=== PATIENT | male | born 1940 | race Caucasian/White ===

== ENCOUNTER 2020-02-05 08:35 | Outpatient (CLI) | payer OTHER, SELFPAY ==
--- NOTE | 2020-02-05 08:58 | ECHO_ITS ---
Patient Info Name: Sin Nieto Age: 79 years : 1940 Gender: Male Ht: 68 in Wt: 208 lbs BSA: 2.16 m2 BP: 157 / 78 mmHg Heart Rhythm: Sinus Rhythm Exam Date: 02/05/2020 9:29 AM Exam Location: [facility] Patient Status: Outpatient Admit Date: 02/05/2020 Staff Ordering Physician: Shay Flynn MD Educational/Development Assistant: Martha Jara RDCS Attending Provider: Shay Flynn MD Referring Physician: Rina SALOMON; Exam Type: CA echo doppler color flow Study Info Indications R01.1 - Cardiac murmur, unspecified Complete two-dimensional, color flow and Doppler transthoracic echocardiogram is performed. Summary 1. Complete two-dimensional, color flow and Doppler transthoracic echocardiogram is performed. 2. Left ventricular chamber dimension is normal. 3. Left ventricular systolic function is normal, estimated at 60-65%. 4. The left ventricular diastolic function is grade I diastolic dysfunction. 5. E/e' 15 is elevated. 6. 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 7. There is moderate to severe aortic valve stenosis with a peak velocity of 360 cm/s, mean gradient of 25 mmHg, and aortic valve area of 0.9 cm2. 8. There is mild aortic valve regurgitation. 9. The mitral valve has moderately calcified annulus. 10. There is trace mitral valve regurgitation. 11. No pulmonary hypertension, estimated pulmonary arterial systolic pressure is 35 mmHg. 12. Small atheroma in anterior and posterior aortic root. Left Ventricle E/e' 15 is elevated. Left ventricular chamber dimension is normal. Left ventricular systolic function is normal, estimated at 60-65%. The left ventricular diastolic function is grade I diastolic dysfunction. Right Ventricle Right ventricular chamber dimension is normal. Right ventricular systolic function is normal. Left Atria Left atrial chamber dimension is normal. Right Atria Right atrial chamber dimension is normal. Aortic Valve The aortic valve is trileaflet. 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 There is moderate to severe aortic valve stenosis with a peak velocity of 360 cm/s, mean gradient of 25 mmHg, and aortic valve area of 0.9 cm2. There is mild aortic valve regurgitation. Pulmonic Valve There is no pulmonic regurgitation. Mitral Valve The mitral valve has moderately calcified annulus. There is no mitral valve stenosis. There is trace mitral valve regurgitation. Tricuspid Valve There is no tricuspid valve regurgitation. No pulmonary hypertension, estimated pulmonary arterial systolic pressure is 35 mmHg. Pericardium/Pleural There is no pericardial effusion. Inferior Vena Cava Normal inferior vena cava with >50% collapse upon inspiration consistent with normal right atrial pressure, 5 mmHg. Aorta Small atheroma in anterior and posterior aortic root. The aortic root size at the sinus of Valsalva is normal. Left Ventricular Outflow Tract Name Value Normal LVOT 2D LVOT Diameter 2.0 cm LVOT Doppler LVOT Peak Gradient 4 mmHg LVOT Mean Gradient 2 mmHg LVOT VTI 22 cm
== END 2020-02-05 08:36 | disposition home or self-care (01) ==
PROVIDERS: PCP Emergency Medicine; Visit Provider Emergency Medicine
DX: R01.1 Cardiac murmur, unspecified (principal); I35.1 Nonrheumatic aortic (valve) insufficiency
CPT/HCPCS: 93306

== ENCOUNTER 2020-03-20 08:24 | Outpatient (NON) | payer OTHER, SELFPAY ==
[2020-03-20 23:54] LABS: SARS-CoV-2 RNA PCR Positive
== END 2020-03-20 08:25 ==
LOC: ANHCOVIDDT 08:25
PROVIDERS: PCP Emergency Medicine; Visit Provider Emergency Medicine
DX: U07.1 COVID-19 (principal)
CPT/HCPCS: 87635; C9803; U0003

== ENCOUNTER → 2020-07-04 14:02 | Outpatient (CLI) | payer OTHER, SELFPAY ==
--- NOTE | ~2020-07-04 | XR_ITS ---
EXAMINATION: XR knee LT 2V DATE: 07/04/2020 15:10 INDICATION: Left knee pain. TECHNIQUE: 2 views of left knee were obtained. COMPARISON: None. FINDINGS: There is varus angulation at the knee. No fracture. There is moderate osteoarthritis of med ial compartment and mild osteoarthritis of lateral and patellofemoral compartments. There is a small knee joint effusion. There is a loose body in a Giles's cyst. IMPRESSION: 1. Moderate left knee osteoarthritis. 2. Small knee joint effusion. 3. Loose body in a Giles's cyst. Reviewed, dictated and finalized at location A. [employer]
== END ==
PROVIDERS: PCP Emergency Medicine; Visit Provider Emergency Medicine
DX: M17.12 Unilateral primary osteoarthritis, left knee (principal); M25.462 Effusion, left knee; M71.22 Synovial cyst of popliteal space [Baker], left knee; M23.42 Loose body in knee, left knee
CPT/HCPCS: 73560